=== PATIENT | male | born 1945 | race Caucasian/White ===

== ENCOUNTER 2020-03-24 02:54 | Observation (INO) ==
[2020-03-24] MEDS ORDERED: NORMAL SALINE 1,000 ML IV ONE ×2 (03:28→05:45)
[2020-03-24] MEDS ORDERED: NORMAL SALINE 500 ML IV ONE ×2 (03:38→05:11)
--- NOTE | 2020-03-24 03:43 | ERNOTE ---
Dizziness ER Record Time Seen by Provider: 03/24/20 03:18 Immunizations: IMMUNIZATION HX Immunizations Up to Date Yes History of Influenza Vaccine Yes Hx Pneumococcal Vaccination Yes Allergies/Adverse Reactions: Allergies Allergy/AdvReac Type Severity Reaction Status Date / Time No Known Drug Allergies Allergy Verified 03/24/20 03:01 Home Medications: HOME MEDICATIONS Ascorbic Acid [Vitamin C] 1,000 mg PO DAILY 10/12/18 [Last Taken Unknown] Aspirin [Aspirin Chewable] 81 mg PO DAILY 10/12/18 [Last Taken Unknown] Dutasteride [Avodart] 0.5 mg PO DAILY 10/12/18 [Last Taken Unknown] Multivit-Min/FA/Lycopen/Lutein [Centrum Silver Tablet] 1 ea PO DAILY 10/12/18 [Last Taken Unknown] [place]-3 Fatty Acids/Fish Oil [Fish Oil 1,000 mg Capsule] 2 ea PO DAILY 10/12/18 [Last Taken Unknown] Pravastatin Sodium [Pravachol] 80 mg PO DAILY 10/12/18 [Last Taken Unknown] Tamsulosin HCl [Flomax] 0.4 mg PO BID 10/12/18 [Last Taken Unknown] Ubidecarenone/Vit E Acet [Co Q-10 100 mg Softgel] 4 ea PO DAILY 10/12/18 [Last Taken Unknown] - History of Present Illness Narrative: 74-year-old male presents feeling lightheadedness and weakness stating he was recently diagnosed with UTI and started antibiotics about a week ago he also self catheterizations for urine and states that he feels urgency more so than usual. Patient states the last time he had sepsis he felt very similar so he was told to come in if he began feeling lightheaded. He denies any shortness of breath cough chest pain. He does admit to having some supra pubic tenderness. Review of Systems - Review of Systems Constitutional: Present: See HPI Genitourinary: Present: See HPI All Other Systems: All systems neg except as marked Medical History (Last Reviewed 03/24/20 @ 03:41 by Zaid Prajapati MD) Enlarged prostate History of urinary self-catheterization Hyperlipemia Kidney stone UTI (urinary tract infection) Surgical History: Surgical History (Last Reviewed 03/24/20 @ 03:41 by Zaid Prajapati MD) Hx of nephrostomy placement 10/08. Currently functioning Family History: Family History (Last Reviewed 03/24/20 @ 03:41 by Zaid Prajapati MD) Other Family history non-contributory Social History: (Last Reviewed 03/24/20 @ 03:41 by Zaid Prajapati MD) Tobacco: Smoking Status: Former smoker Alcohol: alcohol intake: never Substance Use: substance use type: does not use Physical Exam - Physical Exam General Appearance: Present: wd/wn, alert, no apparent distress Eye Exam: Normal inspection: bilateral Neck: Present: normal inspection, nontender, supple, full range of motion Respiratory: Present: no respiratory distress, normal breath sounds, no accessory muscle use Cardiovascular/Chest: Present: regular rate, rhythm, normal peripheral pulses, tachycardia Gastrointestinal/Abdominal: Present: soft, other - Very mild suprapubic tenderness. No CVA tenderness Back Exam: Present: normal inspection, normal range of motion, no CVA tenderness, no vertebral tenderness Extremity Exam: Present: normal inspection, non-tender, normal range of motion, no edema Neurological Exam: Present: alert, oriented, normal mood/affect Skin Exam: Present: normal color, warm/dry Progress - Vital Signs Vital Signs: Vital Signs 03/24/20 03:04 03/24/20 03:19 Temperature 37.7 C Pulse Rate 121 H 121 H Respiratory Rate 18 Blood Pressure 144/71 O2 Sat by Pulse Oximetry 92 L - EKG EKG #1 EKG: NSR, nonspecific ST T wave changes, other - Sinus tachycardia 118 EKG read: Reviewed by me - X-Ray X-Ray #1 X-Ray: chest - No acute changes Interpretation: Interp. by me, Reviewed by me - Progress/Reassessment Chief Complaint: Dizziness Progress:: Unchanged Progress Note-Subjective: 03/24/20 05:53 Post IV hydration orthostatics performed from supine to sitting up his heart rate went from 95-132. At this point patient requires additional hydration which should be done gently over time based on his age and medical history. I have discussed this with the admitting physician [employer] de[employer] who accepted the patient to her service Plan - Plan Plan: Admission Departure Clinical Impression: Orthostatic dizziness - Departure Disposition: Short Term Hospital Inpatient Condition: Fair Referrals: Inderjit Frias DO [Primary Care Provider] -
[2020-03-24 04:10] LABS: Hematocrit 44.1 % (42.0-52.0); Hemoglobin 14.5 gm/dL (13.5-18.0); Mean Cell Volume 94.2 fl (78-100); Mean Corpuscular Hgb Conc 32.9 g/dl (32-36); Mean Platelet Volume 9.1 fl (8-11.3); Neutrophil # 6.3 K/mm3 (1.3-6.0); Platelet Count 114 K/mm3 (150-450); Red Blood Count 4.68 M/mm3 (4.7-6.0); Red Cell Distribution Width 11.7 % (11.5-14.0); White Blood Count 7.7 K/mm3 (4.0-10.5)
[2020-03-24 04:18] LABS: Urine Bilirubin Negative (NEGATIVE); Urine Blood 25 /ul (NEGATIVE); Urine Ketone Negative (NEGATIVE); Urine Nitrite Negative (NEGATIVE); Urine Protein Negative (NEGATIVE); Urine Urobilinogen Normal (NORMAL); Urine pH 6.5 pH (5.0-7.0)
[2020-03-24 04:28] LABS: ALT 42 U/L (19-67); AST 28 U/L (0-48); Albumin * 3.1 gm/dl (3.4-5.0); Alkaline Phosphatase * 85 U/L (50-170); Anion Gap 8.4 mmol/L (6.8-13.8); BUN/Creatinine Ratio 22.1 (9.0-21.6); Bilirubin, Total 0.4 mg/dL (0.0-1.1); Blood Urea Nitrogen 27 mg/dL (6-23); Ca. Corrected For Albumin 9.1 mg/dL (8.4-10.2); Calcium * 8.7 mg/dL (7.9-10.9); Carbon Dioxide 28.6 mmol/L (24-32.6); Chloride 100 mmol/L (97-106); Glucose * 115 mg/dL (70-110); Sodium 133 mmol/L (132-142); Total Protein 6.7 gm/dL (6.2-8.2)
[2020-03-24 04:33] LABS: Troponin I Less than 0.017 ng/mL (0.00-0.10)
[2020-03-24 04:34] LABS: Urine Appearance Slightly Cloudy (CLEAR); Urine Bacteria None Seen; Urine Color Yellow; Urine WBC None Seen /hpf (0-5)
[2020-03-24] MEDS ORDERED: ACETAMINOPHEN 325 MG TABLET PO ONE (04:35)
[2020-03-24] MEDS ORDERED: SIMETHICONE 80 MG TAB.CHEW PO PRN (12:49)
[2020-03-24] MEDS ORDERED: ASPIRIN 81 MG TAB.CHEW PO SCH (13:00)
[2020-03-24] MEDS ORDERED: [UNRECOGNIZED DRUG - OTHER] PO SCH (13:00)
[2020-03-24] MEDS ORDERED: CEPHALEXIN MONOHYDRATE 500 MG CAPSULE PO SCH (13:00)
[2020-03-24] MEDS ORDERED: VIT E ACET PO SCH (13:00)
[2020-03-24] MEDS ORDERED: UBIDECARENONE PO SCH (13:00)
--- NOTE | 2020-03-24 13:02 | HPDIS ---
Chief Complaint - Chief Complaint Date of Service: 03/24/20 Time of Service: 12:52 Chief Complaint: My pulse increases when I stand. History of Present Illness: 74-year-old male with past medical history of BPH, hydronephrosis, CAD, and self urinary catheterization was evaluated at bedside after the patient was admitted for orthostatic hypotension that was detected in the ER. Patient originally came into our emergency department for worsening weakness and dizziness. 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 The patient reports this is new for him, he says he usually has to catheterize himself at 9 PM before bed and is able to go until 6 AM the next day without any issues. But since then he has had to catheterize almost every half an hour. Of note the patient was recently diagnosed with a UTI and was started on oral antibiotics which he is currently completing. He was then to be discharged from the ER earlier this morning but when he went to get up his heart rate went up indicating orthostatic changes, this was thought to be due to fluid deficit. So decision to keep the patient for hydration was made. Since arriving the patient has received almost 4 L of normal saline and says he feels better now, he reports less dizziness and being able to ambulate without any issues. We will conduct an orthostatic evaluation to confirm this. Medical History (Last Reviewed 03/24/20 @ 08:05 by Irma Garcia RN) Enlarged prostate History of urinary self-catheterization Hyperlipemia Kidney stone UTI (urinary tract infection) Surgical History: Surgical History (Last Reviewed 03/24/20 @ 08:05 by Irma Garcia RN) Hx of nephrostomy placement 10/08. Currently functioning Family History: Family History (Last Reviewed 03/24/20 @ 08:05 by Irma Garcia RN) Other Family history non-contributory Social History: (Last Reviewed 03/24/20 @ 08:05 by Irma Garcia RN) Tobacco: Smoking Status: Former smoker Alcohol: alcohol intake: never Substance Use: substance use type: does not use Peds Patient Hx - Developmental: No Pertinent Hx Peds Patient Hx - Medical: No Pertinent Hx Peds Patient Hx - Cardiac/Respiratory: No Pertinent Hx Peds Patient Hx - Surgical: No Surgical History Patient History - Cancer: No Hx of Cancer Review Of Systems (GEN) - Review of Systems Generalized/Overall Review: Present: Weakness EENTM: Present: No Symptoms Reported Respiratory: Present: No Symptoms Reported Cardiac: Present: No Symptoms Reported Abdominal: Present: Other - Occasional bloating and abdominal discomfort. Genitourinary: Present: Frequency - Increased self urinary catheterization, Other Musculoskeletal: Present: No Symptoms Reported Neurological: Present: No Symptoms Reported Skin: Present: No Symptoms Reported Endocrine: Present: No Symptoms Reported Immunizations: IMMUNIZATION HX Immunizations Up to Date Yes History of Influenza Vaccine Yes Hx Pneumococcal Vaccination Yes Allergies/Adverse Reactions: Allergies Allergy/AdvReac Type Severity Reaction Status Date / Time No Known Drug Allergies Allergy Verified 03/24/20 03:01 Home Medications: HOME MEDICATIONS Ascorbic Acid [Vitamin C] 1,000 mg PO DAILY 10/12/18 [Last Taken Unknown] Aspirin [Aspirin Chewable] 81 mg PO DAILY 10/12/18 [Last Taken Unknown] Multivit-Min/FA/Lycopen/Lutein [Centrum Silver Tablet] 1 ea PO DAILY 10/12/18 [Last Taken Unknown] [place]-3 Fatty Acids/Fish Oil [Fish Oil 1,000 mg Capsule] 2 ea PO DAILY 10/12/18 [Last Taken Unknown] Pravastatin Sodium [Pravachol] 80 mg PO HS 10/12/18 [Last Taken Unknown] Ubidecarenone/Vit E Acet [Co Q-10 100 mg Softgel] 4 ea PO DAILY 10/12/18 [Last Taken Unknown] Cephalexin 500 mg PO TID 03/24/20 [Last Taken Unknown] tiZANidine HCL [Tizanidine HCl] 4 mg PO Q6H PRN 03/24/20 [Last Taken Unknown] Exam - Exam Vital Signs: Vital Signs - Last Taken Temp 36.9 C 03/24/20 10:38 Pulse 88 03/24/20 10:38 Resp 20 03/24/20 10:38 BP 111/64 03/24/20 10:38 Pulse Ox 93 03/24/20 10:38 Constitutional: Present: Alert, Oriented x3, Cooperative, Well developed, Well nourished, No distress ENT Exam: Present: normal ENT inspection, hearing grossly normal Eye Exam: bilateral eye: normal inspection, PERRL, EOMI Neck: Present: non-tender, full range of motion, supple, normal inspection, trachea midline Back Exam: Present: normal inspection, no CVA tenderness, no vertebral tenderness Breasts: Present: Exam deferred, Nontender Respiratory: Present: chest non-tender, lungs clear, normal breath sounds, no respiratory distress, no accessory muscle use Cardiovascular/Chest: Present: normal peripheral pulses, regular rate, rhythm, no chest tenderness, no edema, no gallop, no JVD, no murmur, no rub Peripheral Pulses: carotid (R): 3+, carotid (L): 3+ Abdomen: Present: Normal bowel sounds, soft, nontender, nondistended, no rebound tenderness, no hepatospenomegaly, no masses /Rectal: Present: Exam deferred Extremity: Present: normal range of motion, non-tender, normal inspection, no pedal edema, no calf tenderness, normal capillary refill Skin Exam: Present: normal color, warm/dry, no cyanosis Lymphatic: Present: no adenopathy 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, normal cerebellar test, no motor/sensory deficits, alert, normal mood/affect, oriented x 3 Appearance: Present: appropriate appearance, appropriate insight, neat, no memory impairment Eye contact: Present: cooperative, good eye contact, normal speech Thoughts: Present: normal thought pattern, no apparent hallucination Diagnostic Studies: Abnormal Lab Results 03/24/20 03/24/20 03/24/20 Range/Units 03:39 04:00 04:00 RBC 4.68 L (4.7-6.0) M/mm3 Plt Count 114 L (150-450) K/mm3 Neutrophils % 82.0 H (42-75.0) % Lymphocytes % 9.7 L (20-51) % Neutrophils # 6.3 H (1.3-6.0) K/mm3 Lymphocytes # 0.75 L (1.5-3.5) k/mm3 BUN 27 H (6-23) mg/dL BUN/Creatinine Ratio 22.1 H (9.0-21.6) Random Glucose 115 H (70-110) mg/dL Albumin 3.1 L (3.4-5.0) gm/dl Urine Blood 25 H (NEGATIVE) /ul Urine RBC 5-10 H (0-5) /hpf Laboratory Results WBC 7.7 K/mm3 (4.0-10.5) 03/24/20 04:00 RBC 4.68 M/mm3 (4.7-6.0) L 03/24/20 04:00 Hgb 14.5 gm/dL (13.5-18.0) 03/24/20 04:00 Hct 44.1 % (42.0-52.0) 03/24/20 04:00 MCV 94.2 fl (78-100) 03/24/20 04:00 MCH 31.0 pg (27-31) 03/24/20 04:00 MCHC 32.9 g/dl (32-36) 03/24/20 04:00 RDW 11.7 % (11.5-14.0) 03/24/20 04:00 Plt Count 114 K/mm3 (150-450) L 03/24/20 04:00 MPV 9.1 fl (8-11.3) 03/24/20 04:00 Immature Gran % (Auto) 0.30 % (0.001-0.429) 03/24/20 04:00 Immature Gran # (Auto) 0.02 K/mm3 (0.000-0.0310) 03/24/20 04:00 Neutrophils % 82.0 % (42-75.0) H 03/24/20 04:00 Lymphocytes % 9.7 % (20-51) L 03/24/20 04:00 Monocytes % 7.9 % (0.0-9) 03/24/20 04:00 Eosinophils % 0.0 % (0.0-3.0) 03/24/20 04:00 Basophils % 0.1 % (0.0-1.0) 03/24/20 04:00 Nucleated RBC % 0.0 k/mm3 (0-1) 03/24/20 04:00 Neutrophils # 6.3 K/mm3 (1.3-6.0) H 03/24/20 04:00 Lymphocytes # 0.75 k/mm3 (1.5-3.5) L 03/24/20 04:00 Monocytes # 0.6 k/mm3 (0.0-1.0) 03/24/20 04:00 Eosinophils # 0.0 k/mm3 (0.0-0.7) 03/24/20 04:00 Absolute Basophils 0.0 k/mm3 (0.0-0.1) 03/24/20 04:00 Sodium 133 mmol/L (132-142) 03/24/20 04:00 Plasma Sodium 133 mmol/L (130-142) 03/24/20 04:00 Potassium 4.0 mmol/L (3.4-4.6) 03/24/20 04:00 Chloride 100 mmol/L (97-106) 03/24/20 04:00 Carbon Dioxide 28.6 mmol/L (24-32.6) 03/24/20 04:00 Anion Gap 8.4 mmol/L (6.8-13.8) 03/24/20 04:00 BUN 27 mg/dL (6-23) H 03/24/20 04:00 Creatinine 1.22 mg/dL (0.4-1.4) 03/24/20 04:00 Est GFR (Non-Af Amer) 62 mL/min (60-130) 03/24/20 04:00 BUN/Creatinine Ratio 22.1 (9.0-21.6) H 03/24/20 04:00 Random Glucose 115 mg/dL (70-110) H 03/24/20 04:00 Lactic Acid, Venous 1.1 mmol/L (0.4-2.0) 03/24/20 04:00 Calcium 8.7 mg/dL (7.9-10.9) 03/24/20 04:00 Calcium Adj for Albumin 9.1 mg/dL (8.4-10.2) 03/24/20 04:00 Total Bilirubin 0.4 mg/dL (0.0-1.1) 03/24/20 04:00 AST 28 U/L (0-48) 03/24/20 04:00 ALT 42 U/L (19-67) 03/24/20 04:00 Alkaline Phosphatase 85 U/L (50-170) 03/24/20 04:00 Troponin I Less than 0.017 ng/mL (0.00-0.10) 03/24/20 04:00 Total Protein 6.7 gm/dL (6.2-8.2) 03/24/20 04:00 Albumin 3.1 gm/dl (3.4-5.0) L 03/24/20 04:00 Urine Color Yellow 03/24/20 03:39 Urine Appearance Slightly cloudy (CLEAR) 03/24/20 03:39 Urine pH 6.5 pH (5.0-7.0) 03/24/20 03:39 Ur Specific [place] 1.020 SP.GR. (1.005-1.030) 03/24/20 03:39 Urine Protein Negative mg/dL (NEGATIVE) 03/24/20 03:39 Urine Glucose (UA) Negative mg/dL (NEGATIVE) 03/24/20 03:39 Urine Ketones Negative mg/dL (NEGATIVE) 03/24/20 03:39 Urine Blood 25 /ul (NEGATIVE) H 03/24/20 03:39 Urine Nitrate Negative (NEGATIVE) 03/24/20 03:39 Urine Bilirubin Negative mg/dl (NEGATIVE) 03/24/20 03:39 Urine Urobilinogen Normal EU/dl (NORMAL) 03/24/20 03:39 Ur Leukocyte Esterase Negative /ul (NEGATIVE) 03/24/20 03:39 Urine RBC 5-10 /hpf (0-5) H 03/24/20 03:39 Urine WBC None seen /hpf (0-5) 03/24/20 03:39 Ur Epithelial Cells 0-5 /hpf (0-5) 03/24/20 03:39 Urine Bacteria None seen (NONE) 03/24/20 03:39 Urine Culture Comments Culture to follow 03/24/20 03:39 SARS-CoV-2 (PCR) Not detected (NotDetected) 03/24/20 05:47 Assessment/Plan - Narrative Narrative: Patient was evaluated medical chart was reviewed and [facility] of [facility] hypot[facility] was made. Patient has been treated with multiple liters of normal saline reports feeling better, will conduct a bedside orthostatic evaluation to confirm this. He was bladder scanned by the nurses who report only 150 mL of urine so it was determined that he is not retaining his urine. The patient was instructed to discuss his urinary symptoms especially this sensation of frequent urgency but he reports with his urologist. We also will continue the current course of antibiotics. Date of Discharge:: 03/24/20 Hospital Course: Patient orthostatic tachycardia has mildly improved, his pulse increases when he goes from a lying to sitting then a standing position. 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 He tolerated almost 4 L of normal saline without any issues and says he feels stronger and better now. We will discharge patient home with instructions to follow-up with his doctor. Procedures Performed: none Results and Findings: Lab Pending Results 03/24/20 03:39: Urine Color Yellow, Urine Appearance Slightly cloudy, Urine pH 6.5, Ur Specific [place] 1.020, Urine Protein Negative, Urine Glucose (UA) Negative, Urine Ketones Negative, Urine Blood 25 H, Urine Nitrate Negative, Urine Bilirubin Negative, Urine Urobilinogen Normal, Ur Leukocyte Esterase Negative, Urine RBC 5-10 H, Urine WBC None seen, Ur Epithelial Cells 0-5, Urine Bacteria None seen, Urine Culture Comments Culture to follow 03/24/20 04:00: WBC 7.7, RBC 4.68 L, Hgb 14.5, Hct 44.1, MCV 94.2, MCH 31.0, MCHC 32.9, RDW 11.7, Plt Count 114 L, MPV 9.1, Immature Gran % (Auto) 0.30, Immature Gran # (Auto) 0.02, Neutrophils % 82.0 H, Lymphocytes % 9.7 L, Monocytes % 7.9, Eosinophils % 0.0, Basophils % 0.1, Nucleated RBC % 0.0, Neutrophils # 6.3 H, Lymphocytes # 0.75 L, Monocytes # 0.6, Eosinophils # 0.0, Absolute Basophils 0.0 03/24/20 04:00: Sodium 133, Plasma Sodium 133, Potassium 4.0, Chloride 100, Carbon Dioxide 28.6, Anion Gap 8.4, BUN 27 H, Creatinine 1.22, Est GFR (Non-Af Amer) 62, BUN/Creatinine Ratio 22.1 H, Random Glucose 115 H, Calcium 8.7, Calcium Adj for Albumin 9.1, Total Bilirubin 0.4, AST 28, ALT 42, Alkaline Phosphatase 85, Troponin I Less than 0.017, Total Protein 6.7, Albumin 3.1 L 03/24/20 04:00: Lactic Acid, Venous 1.1 03/24/20 05:47: SARS-CoV-2 (PCR) Not detected Discharge Location: Home Disposition: Home self-care Condition: Fair Discharge Activity: Activity as tolerated Discharge Diet: General/regular food Referrals: Inderjit Frias DO [Primary Care Provider] - Complete Home Medications List: Complete Home Medication List: Ascorbic Acid [Vitamin C] 1,000 mg PO DAILY 10/12/18 Aspirin [Aspirin Chewable] 81 mg PO DAILY 10/12/18 Multivit-Min/FA/Lycopen/Lutein [Centrum Silver Tablet] 1 ea PO DAILY 10/12/18 [place]-3 Fatty Acids/Fish Oil [Fish Oil 1,000 mg Capsule] 2 ea PO DAILY 10/12/18 Pravastatin Sodium [Pravachol] 80 mg PO HS 10/12/18 Ubidecarenone/Vit E Acet [Co Q-10 100 mg Softgel] 4 ea PO DAILY 10/12/18 Cephalexin 500 mg PO TID 03/24/20 tiZANidine HCL [Tizanidine HCl] 4 mg PO Q6H PRN 03/24/20
[2020-03-24] MEDS ORDERED: tiZANidine HCL 4 MG TABLET PO PRN (13:22)
[2020-03-24 15:39] VITALS: BP 124/78
[2020-03-24] MEDS ORDERED: ROSUVASTATIN CALCIUM 10 MG TABLET PO SCH (21:00)
[2020-03-25] MEDS ORDERED: MULTIVIT-MIN/FA/LYCOPEN/LUTEIN 1 TAB TABLET PO SCH (09:00)
[2020-03-25] MEDS ORDERED: ASCORBIC ACID 500 MG TABLET PO SCH (09:00)
[2020-03-25] MEDS ORDERED: OMEGA-3 FATTY ACIDS 1 CAP CAPSULE PO SCH (09:00)
== END 2020-03-24 15:46 | disposition home or self-care (01) ==
LOC: ER 02:54 → MS 02:54
PROVIDERS: ADMIT Family Medicine; ATTEND Family Medicine
DX: I95.1 Orthostatic hypotension; Z87.891 Personal history of nicotine dependence; I25.10 Atherosclerotic heart disease of native coronary artery without angina pectoris; N40.1 Benign prostatic hyperplasia with lower urinary tract symptoms; R39.15 Urgency of urination; R53.1 Weakness; R35.0 Frequency of micturition; R42 Dizziness and giddiness